=== PATIENT | male | born 1990 | race Caucasian/White ===

== ENCOUNTER 2017-03-13 14:02 | Emergency (ER) | payer BC ==
[2017-03-13 14:07] VITALS: TEMP 36.6
[2017-03-13 14:27] VITALS: O2SAT 100
--- NOTE | 2017-03-13 14:29 | EMERGENCY ROOM VISIT NOTE ---
History First contact with patient: 14:04 Chief Complaint: ALCOHOL OVERDOSE Stated Complaint: ALCOHOL OVERDOSE Nursing Triage Summary: pt states "my parents are right there, they're on the white board and they are so upset with me." History of Present Illness The patient is a 26 year old male who presents to the Emergency Room with complaints of alcohol overdose. Reportedly, [place] He appeared to be intoxicated and was brought to the emergency department for evaluation. The patient is awake. He is quite tearful and anxious. The patient denies any pain. He denies any injury. He does have a superficial, nonbleeding abrasion to the left cheek. The patient states that he was drinking rum. He denies any drug use. The patient states he is very tearful because his brother committed suicide in May. The patient graduated from [employer] last year. He states that he was not trying to harm himself and has no thoughts of suicide. The patient denies any headache , chest pain, trouble breathing, abdominal pain, vomiting. Review of Systems A 10 system review of systems was completed with positives and pertinent negatives listed in the HPI. Past Medical/Surgical History patient denies Social History Marital Status: single Housing Status: lives alone Current/Historical Medications Unable to Obtain Active Prescriptions or Reported Meds Physical Exam Vital Signs Date Time Temp Pulse Resp B/P (MAP) Pulse Ox O2 Delivery O2 Flow Rate FiO2 03/13/17 20:26 108 18 118/89 98 Room Air 03/13/17 19:15 98 15 121/78 97 Room Air 03/13/17 18:19 91 111/62 97 Room Air 03/13/17 16:42 87 16 101/64 97 Room Air 03/13/17 15:50 104 16 107/71 97 Room Air 03/13/17 14:27 100 Room Air 03/13/17 14:07 142 03/13/17 14:07 36.6 125 22 142/90 100 Room Air Physical Exam VITALS: Vitals are noted on the nurse's note and reviewed by myself. Vital signs stable. GENERAL: This is a 26 year old male, in no acute distress, nondiaphoretic, well- developed well-nourished. SKIN: The skin was without rashes, erythema, edema. There are no lacerations.There is a very superficial abrasion to the left cheek. There is no significant edema or tenderness. There is no tenting of the skin. Capillary reflex less than 2 seconds. HEAD: Normocephalic atraumatic. EARS: External auditory canals clear, tympanic membranes pearly enriquez without erythema or effusion bilaterally. No hemotympanum. No browne sign. No mastoid tenderness. EYES: Pupils equal round and reactive to light and accommodation. Conjunctivae without injection, sclerae without icterus. Extraocular movements intact. NOSE: Patent, turbinates without inflammation or discharge. No sinus tenderness. No septal hematoma or bleeding. FACE: No facial tenderness. Full range of motion of the jaw without tenderness. MOUTH: Mucous membranes moist. Pharynx without erythema or exudate. Uvula midline. Airway patent. Tongue does not deviate. NECK: Supple without nuchal rigidity. Cervical spine is nontender. Full range of motion of the neck without tenderness. No JVD. HEART: Regular rate and rhythm without murmurs gallops or rubs. LUNGS: Clear to auscultation bilaterally without wheezes, rales or rhonchi. No retractions or accessory muscle use. No chest tenderness. ABDOMEN: Positive bowel sounds x 4. Soft, nontender, without masses or organomegaly. MUSCULOSKELETAL: No muscle atrophy, erythema, or edema noted. Full range of motion without joint tenderness in all extremities. No tenderness to palpation. Normal gait. Strength 5/5 throughout. NEURO: Patient was alert and oriented to person place and time. No focal neurological deficits. Medical Decision & Procedures Laboratory Results 03/13/17 14:32 Red Blood Count 5.10, Mean Corpuscular Volume 86.9, Mean Corpuscular Hemoglobin 30.0, Mean Corpuscular Hemoglobin Concent 34.5, Mean Platelet Volume 11.3, Neutrophils (%) (Auto) 56.5, Lymphocytes (%) (Auto) 35.1, Monocytes (%) (Auto) 6.1, Eosinophils (%) (Auto) 1.6, Basophils (%) (Auto) 0.4, Neutrophils # (Auto) 3.92, Lymphocytes # (Auto) 2.43, Monocytes # (Auto) 0.42, Eosinophils # (Auto) 0.11, Basophils # (Auto) 0.03 03/13/17 14:32 Test 03/13/17 14:32 03/13/17 14:55 White Blood Count 6.93 K/uL (4.8-10.8) Red Blood Count 5.10 M/uL (4.7-6.1) Hemoglobin 15.3 g/dL (14.0-18.0) Hematocrit 44.3 % (42-52) Mean Corpuscular Volume 86.9 fL (80-100) Mean Corpuscular Hemoglobin 30.0 pg (25-34) Mean Corpuscular Hemoglobin Concent 34.5 g/dl (32-36) Platelet Count 270 K/uL (130-400) Mean Platelet Volume 11.3 fL (7.4-10.4) Neutrophils (%) (Auto) 56.5 % Lymphocytes (%) (Auto) 35.1 % Monocytes (%) (Auto) 6.1 % Eosinophils (%) (Auto) 1.6 % Basophils (%) (Auto) 0.4 % Neutrophils # (Auto) 3.92 K/uL (1.4-6.5) Lymphocytes # (Auto) 2.43 K/uL (1.2-3.4) Monocytes # (Auto) 0.42 K/uL (0.11-0.59) Eosinophils # (Auto) 0.11 K/uL (0-0.5) Basophils # (Auto) 0.03 K/uL (0-0.2) RDW Standard Deviation 42.1 fL (36.4-46.3) RDW Coefficient of Variation 13.2 % (11.5-14.5) Immature Granulocyte % (Auto) 0.3 % Immature Granulocyte # (Auto) 0.02 K/uL (0.00-0.02) Anion Gap 6.0 mmol/L (3-11) Estimated GFR () 132.7 Estimated GFR (Non- 114.5 BUN/Creatinine Ratio 9.9 (10-20) Calcium Level 9.3 mg/dl (8.5-10.1) Total Bilirubin 0.4 mg/dl (0.2-1) Direct Bilirubin 0.1 mg/dl (0-0.2) Aspartate Amino Transf (AST/SGOT) 25 U/L (15-37) Alanine Aminotransferase (ALT/SGPT) 23 U/L (12-78) Alkaline Phosphatase 94 U/L (45-117) Total Protein 8.4 gm/dl (6.4-8.2) Albumin 4.2 gm/dl (3.4-5.0) Thyroid Stimulating Hormone (TSH) 7.030 uIu/ml (0.300-4.500) Ethyl Alcohol mg/dL 293.0 mg/dl (0-3) Urine Color YELLOW Urine Appearance CLEAR (CLEAR) Urine pH 5.0 (4.5-7.5) Urine Specific [place] 1.012 (1.000-1.030) Urine Protein NEG (NEG) Urine Glucose (UA) NEG (NEG) Urine Ketones NEG (NEG) Urine Occult Blood NEG (NEG) Urine Nitrite NEG (NEG) Urine Bilirubin NEG (NEG) Urine Urobilinogen NEG (NEG) Urine Leukocyte Esterase NEG (NEG) Urine Opiates Screen NEG (NEG) Urine Methadone, Qualitative NEG (NEG) Urine Barbiturates NEG (NEG) Urine Phencyclidine (PCP) Level NEG (NEG) Ur Amphetamine/Methamphetamine NEG (NEG) MDMA (Ecstasy) Screen NEG (NEG) Urine Benzodiazepines Screen NEG (NEG) Urine Cocaine Metabolite NEG (NEG) Urine Marijuana (THC) NEG (NEG) Medications Administered Medications (Trade) Dose Ordered Sig/Jean Marie Route Start Time Stop Time Status Last Admin Dose Admin Ibuprofen (Motrin Tab) 600 mg NOW STAT PO 03/13/17 20:21 03/13/17 20:22 DC 03/13/17 20:26 600 MG ED Course The patient presented to the emergency department via ambulance. The patient was found by himself [facility]. The patient admits to drinking rum today. The patient's alcohol was 293. Urine drug screen was negative. His TSH was minimally elevated. The patient was monitored in the emergency department for several hours. When the patient had arrived in the emergency department, he was very tearful. The patient states that his brother with whom he was very close committed suicide in May. The patient never directly made any suicidal statements. When I asked him if he any thoughts of hurting himself or anyone else he denied both when he was intoxicated and later when he was more sober. It is clear that the patient is suffering from the loss of his brother. The patient's mother and sister arrived in the emergency department. I had a lengthy discussion with all of them. It seems as though the entire family is having significant difficulty dealing with the of the patient's brother. I recommended that they seek behavioral health therapy and management. The patient's mother and sister agreed to take responsibility for the patient. Again, he never made any direct statements that he wanted to harm himself. He was just quite tearful and upset. The patient did have a very superficial abrasion to the left cheek but no tenderness or edema. When he was awake, alert and oriented to person, place, time and events and his mother and sister were here, the patient was calm but had a very flat affect. I also asked case management to meet with the patient and his family and to encourage them to seek family counseling. The patient's mother states that she would. They live in the [facility]. The patient should return to the ER with any worsening symptoms. The case was discussed with Dr. William who agrees with the assessment and treatment plan. Medical Decision The differential diagnosis includes alcohol overdose, alcohol intoxication, suicidal ideation, drug intoxication, among others Impression Primary Impression: Alcoholic intoxication Departure Information Dispostion Home / Self-Care Condition GOOD Prescriptions Unable to Obtain Active Prescriptions or Reported Meds Referrals No Doctor, Assigned (PCP) Patient Instructions Depression Counseling, Get Help Family and Friends, My [facility] Additional Instructions Follow up with your family doctor and or outpatient behavioral health for further evaluation and management Return with worsening symptoms
[2017-03-13 14:45] LABS: BASO % 0.4 %; BASO ABS # 0.03 K/uL (0-0.2); COMPLETE YES; EOS % 1.6 %; HEMATOCRIT 44.3 % (42-52); IG% 0.3 %; LYMPH % 35.1 %; LYMPH ABS # 2.43 K/uL (1.2-3.4); MEAN CELL VOLUME 86.9 fL (80-100); MEAN CORPUSCULAR HGB CONC 34.5 g/dl (32-36); MEAN PLATELET VOLUME 11.3 fL (7.4-10.4); MONO % 6.1 %; NEUT % 56.5 %; PLATELET COUNT 270 K/uL (130-400); WHITE BLOOD COUNT 6.93 K/uL (4.8-10.8)
[2017-03-13 15:09] LABS: BLOOD UREA NITROGEN 9 mg/dl (7-18); BUN/CREATININE RATIO 9.9 (10-20); CALCIUM 9.3 mg/dl (8.5-10.1); CARBON DIOXIDE 27 mmol/L (21-32); CHLORIDE 111 mmol/L (98-107); CREATININE 0.93 mg/dl (0.60-1.40); GLUCOSE 133 mg/dl (70-99); POTASSIUM 3.5 mmol/L (3.5-5.1); SODIUM 144 mmol/L (136-145)
[2017-03-13 15:40] LABS: BENZODIAZEPINE, URINE NEG (NEG); COCAINE,URINE NEG (NEG); PHENCYCLIDINE, URINE NEG (NEG)
[2017-03-13 16:29] LABS: URINE APPEARANCE CLEAR (CLEAR); URINE BILIRUBIN NEG (NEG); URINE COLOR YELLOW; URINE NITRITE NEG (NEG); URINE SPECIFIC GRAVITY 1.012 (1.000-1.030); UROBILINOGEN NEG (NEG)
[2017-03-13 16:41] LABS: MANUAL MICROSCOPIC REQUIRED? NO; REVIEW REQ? NO
[2017-03-13 16:49] LABS: THYROID STIMULATING HORMONE 7.03 uIu/ml (0.300-4.500)
[2017-03-13] MEDS ORDERED: IBUPROFEN 600 MG TAB PO STA (20:21)
[2017-03-13 20:26] VITALS: BP 118/89; PULSE 108; O2SAT 98
== END 2017-03-13 20:33 | disposition home or self-care (01) ==
LOC: C.EDA 14:04
DX: F10.129 Alcohol abuse with intoxication, unspecified (principal)